=== PATIENT | female | born 1975 | race African-American/Black ===

== ENCOUNTER 2016-09-20 22:21 | Emergency (ER) | payer MEDICARE, MEDICAID ==
[~2016-09-20] VITALS: Ht 162.6 cm; Wt 98.0 kg
[~2016-09-20 22:21] MED LIST: ALBUTEROL SULF8.5 GM INH; AZITHROMYCIN250 MG ORAL; BACTRIM-DS1 EA ORAL; CEPHALEXIN500 MG PO; CHERATUSSIN AC118 ML PO; CIPRO500 MG PO; CLEOCIN HCL150 MG PO; COLACE100 MG ORAL; HIBICLENS118 ML TP; IBUPROFEN600 M1 PO; LOSARTAN POTASS50 MG ORAL; METFORMIN HCL1000 M1 ORAL; METFORMIN HCL500 M4 ORAL; NEXIUM20 MG ORAL; NKM; NORCO 5-325 TA1 EACH ORAL; PHENERGAN/CODE120 ML PO; REGLAN10 MG ORAL; ROBITUSSIN DM5 ML ORAL; SUCRALFATE1 GM/10 ML PO; TAMIFLU75 MG ORAL; TRAMADOL HCL50 MG ORAL; VALIUM10 MG ORAL; VALIUM5 MG ORAL; VICODIN 5-5001 EACH ORAL; ZANTAC150 MG ORAL; ZITHROMAX250 MG ORAL; ZOFRAN ODT4 MG ORAL
[2016-09-20 22:45] VITALS: BP 130/83
[2016-09-20] MEDS ORDERED: Norco 5mg/325mg tab ORAL ONE (23:00)
[2016-09-20] MEDS ORDERED: IBUPROFEN600 MG ORAL (23:48)
[2016-09-20] MEDS ORDERED: HYDROCODON-ACE1 EA15 ORAL (23:48)
--- NOTE | 2016-09-20 23:48 | Emergency Room Report ---
History of Present Illness General Chief Complaint: Lower Extremity Injury Source: Patient Present Illness HPI Is a 41 year female with no significant past medical history. She presents with chief complaint of ankle injury. This occurred 2 days ago she was walking. She stepped off a curb and twisted her ankle. Swelling since then. Throbbing in nature. 7/10 pain. No radiation. Worse with weightbearing. Her second complaint is that she has a sore throat. 2 days ago she was eating a bolus chicken and cannot tell a piece of bone in it. She choked on it and vomited. Since then she complaining of some sore throat. Denies any fever chills denies any nausea vomiting. No other complaint or Allergies: Coded Allergies: No Known Allergies (Unverified , 05/29/13) Patient History Past Medical History: see triage record, old chart reviewed Past Surgical History: other Pertinent Family History: none Social History: Denies: smoking Last Menstrual Period: A WEEK AGO Now: No : 3 Para: 2 Immunizations: other Reviewed Nursing Documentation: PMH: Agreed, PSxH: Agreed Nursing Documentation-PMH Hx Cardiac Problems: No - hernia w/ mesh Hx Hypertension: Yes Hx Pacemaker: No Hx Asthma: No Hx COPD: No Hx Diabetes: Yes Hx Cancer: No Hx Dialysis: No History Of Psychiatric Problem: Yes - ANXIETY Hx Cerebrovascular Accident: No Hx Seizures: No Review of Systems Eye: Denies: blurred vision, eye pain ENT: Denies: ear pain, nose congestion, throat swelling Respiratory: Denies: cough, shortness of breath Cardiovascular: Denies: chest pain, palpitations Gastrointestinal: Denies: abdominal pain, diarrhea, nausea, vomiting Musculoskeletal: Reports: joint pain, Denies: back pain Skin: Denies: rash Neurological: Denies: headache, numbness Endocrine: Denies: increased thirst, increased urine Hematologic/Lymphatic: Denies: easy bruising All Other Systems: negative except mentioned in HPI Physical Exam Vital Signs Date Time Temp Pulse Resp B/P Pulse Ox O2 Delivery O2 Flow Rate FiO2 09/20/16 22:36 98.2 83 18 137/88 97 Room Air vitals normal Sp02 EP Interpretation: reviewed, normal General Appearance: well appearing, no apparent distress, alert Head: normocephalic, atraumatic Eyes: bilateral eye EOMI, bilateral eye PERRL ENT: hearing grossly normal, normal pharynx, other - No trauma to the oropharynx Neck: full range of motion, supple, no meningismus Respiratory: chest non-tender, lungs clear, normal breath sounds Cardiovascular #1: regular rate, rhythm, no murmur Gastrointestinal: normal bowel sounds, non tender, no mass, no organomegaly, no bruit, non-distended Musculoskeletal: back normal, gait/station normal, normal range of motion, swelling - Mild edema and tenderness to the lateral malleolus. Ankle stable. Neurovascularly intact. Psychiatric: mood/affect normal Skin: warm/dry Procedures Splinting Splinting : Consent: Verbal Location: Right ankle Pre-Made Type: aircast Pre-Proc Neuro Vasc Exam: normal Post-Proc Neuro Vasc Exam: normal Patient Tolerated: Well Complications: None Medical Decision Making Diagnostic Impression: Primary Impression: Right ankle sprain Qualified Codes: S93.411A - Sprain of calcaneofibular ligament of right ankle , initial encounter Additional Impression: Sorethroat ER Course Patient with ankle sprain. No fracture or dislocation. We'll discharge home. No foreign body her throat. Last Vital Signs Date Time Temp Pulse Resp B/P Pulse Ox O2 Delivery O2 Flow Rate FiO2 09/20/16 22:36 98.2 83 18 137/88 97 Room Air Status: improved Disposition: HOME, SELF-CARE Condition: Stable Scripts Ibuprofen* (MOTRIN*) 600 Mg Tablet 600 MG ORAL THREE TIMES A DAY, #30 TAB 0 Refills Prov: KORTNEY PETERSON M.D. 09/20/16 Hydrocodone/Acetaminophen 5-325* (HYDROCODONE/ACETAMINOPHEN 5-325*) 1 Each Tablet 1 TAB ORAL Q6H Y for For Pain, #15 TAB 0 Refills Prov: KORTNEY PETERSON M.D. 09/20/16 Patient Instructions: Ankle Sprain Additional Instructions: Followup with your DrLisa in 7 days. Ice pack to the area. Return if worse. KORTNEY PETERSON M.D. Sep 20, 2016 23:48
[2016-09-21] VITALS: BP 129/81
--- NOTE | 2016-09-21 08:55 | Diagnostic Imaging Report ---
Indications: Right ankle trauma, pain Technique: 4 views right ankle. Findings: Comparison: None Anterolateral soft tissue swelling. No fracture, dislocation, joint space widening , additional soft tissue swelling/foreign body/gas, or other acute changes are identified. IMPRESSION: Consider ATFL sprain No other evidence of acute injury
== END 2016-09-21 | disposition home or self-care (01) ==
LOC: EMR 22:45
DX: S93.401A Sprain of unspecified ligament of right ankle, initial encounter (principal); X50.1XXA Overexertion from prolonged static or awkward postures, initial encounter; Y93.01 Activity, walking, marching and hiking; Y92.89 Other specified places as the place of occurrence of the external cause; I10 Essential (primary) hypertension; F41.9 Anxiety disorder, unspecified; J02.9 Acute pharyngitis, unspecified
CPT/HCPCS: 29540; 99283

== ENCOUNTER 2016-11-04 19:21 | Emergency (ER) | payer MEDICARE, MEDICAID ==
[~2016-11-04] VITALS: Ht 162.6 cm; Wt 98.0 kg
[~2016-11-04 19:21] MED LIST changes: +HYDROCODON-ACE1 EA15 ORAL; +IBUPROFEN600 MG ORAL
[2016-11-04 19:35] VITALS: BP 124/76
[2016-11-04] MEDS ORDERED: PSEUDOEPHEDRINE60 MG PO (19:47)
[2016-11-04] MEDS ORDERED: AFRIN NASAL SPR30 ML NASAL (19:47)
[2016-11-04] MEDS ORDERED: CLARITIN-D 241 EACH PO (19:47)
[2016-11-04 19:55] VITALS: BP 124/76
--- NOTE | 2016-11-04 22:30 | Emergency Room Report ---
History of Present Illness General Chief Complaint: Pain Source: Patient Present Illness HPI The patient is a 41-year-old female presenting for right-sided facial pain and ear pain for the past 2 weeks. The patient states that she feels like the right ear is filled with water and she has been having nasal discharge. Pain described as an 8/10 dull ache to the right side of the face and is worse with bending over. Pain does not radiate. She denies other symptoms including fever , chills, cough, sore throat, dizziness, blurred vision Allergies: Coded Allergies: No Known Allergies (Unverified , 05/29/13) Patient History Past Medical History: see triage record Pertinent Family History: none Last Menstrual Period: A MONTH AGO Now: No Reviewed Nursing Documentation: PMH: Agreed, PSxH: Agreed Nursing Documentation-PMH Hx Cardiac Problems: No - hernia w/ mesh Hx Hypertension: Yes Hx Pacemaker: No Hx Asthma: No Hx COPD: No Hx Diabetes: Yes Hx Cancer: No Hx Dialysis: No Hx Cerebrovascular Accident: No Hx Seizures: No Review of Systems All Other Systems: negative except mentioned in HPI Physical Exam Vital Signs Date Time Temp Pulse Resp B/P Pulse Ox O2 Delivery O2 Flow Rate FiO2 11/04/16 19:26 98.2 82 18 124/76 99 Room Air Sp02 EP Interpretation: reviewed, normal General Appearance: no apparent distress, alert, GCS 15, non-toxic Head: normocephalic, atraumatic Eyes: bilateral eye PERRL, bilateral eye normal inspection ENT: normal pharynx, no angioedema, normal voice, uvula midline, nasal congestion, other - R TM serous fluid. Non bulging. No erythema. TTP over R maxillary sinus Neck: full range of motion, supple/symm/no masses Respiratory: chest non-tender, lungs clear, normal breath sounds, speaking full sentences Musculoskeletal: back normal, gait/station normal, normal range of motion, non- tender Neurologic: alert, oriented x3, responsive, motor strength/tone normal, sensory intact, speech normal Psychiatric: judgement/insight normal, memory normal, mood/affect normal, no suicidal/homicidal ideation Skin: normal color, no rash, warm/dry, well hydrated Lymphatic: no adenopathy Medical Decision Making PA Attestation Dr. keane is my supervising physician. Patient management was discussed with my supervising physician Diagnostic Impression: Primary Impression: Maxillary sinusitis Qualified Codes: J01.00 - Acute maxillary sinusitis, unspecified ER Course The patient is a 41-year-old female presenting for right-sided facial pain and ear pain Differential diagnosis include but not limited to otitis externa, otitis media, mastoiditis, sinusitis, pharyngitis PE: vitals within normal limits. There is tenderness to palpation over the right maxillary sinus along with serous fluid behind the right TM and nasal congestion. The patient will be treated for sinusitis with Sudafed, Afrin, and claritin ER precautions given Last Vital Signs Date Time Temp Pulse Resp B/P Pulse Ox O2 Delivery O2 Flow Rate FiO2 11/04/16 19:55 98.2 82 18 124/76 99 Room Air Status: improved Disposition: HOME, SELF-CARE Condition: Improved Scripts Loratadine/Pseudoephedrine (CLARITIN-D 24 HOUR TABLET) 1 Each Tab.er.24h 1 TAB PO DAILY, #15 TAB Prov: KIMANDAVID P.A. 11/04/16 Oxymetazoline HCl (Afrin) 15 Ml Carpenter 2 SPRAY NASAL TWICE A DAY for 5 Days, SPRAY Prov: TERZIANVERONICAY P.A. 11/04/16 Pseudoephedrine Hcl* (SUDAFED*) 60 Mg Tablet 60 MG PO Q6H, #24 TAB Prov: KIMANDAVID P.A. 11/04/16 Referrals: NON PHYSICIAN (PCP) Patient Instructions: Sinusitis, Adult Additional Instructions: I discussed my findings with the patient. All questions and concerns have been answered. Treatment and medication compliance have been addressed. I advised the patient that they need to follow up with PMD in 3-5 days. Return to ED if pain remains or worsens, cough worsens or remains, you notice blood in your sputum, you notice wheezing, you experience a fever, or if needed for any reason. Patient verbalized understanding of discharge instructions. DAVID SUAREZ Nov 04, 2016 22:29
== END 2016-11-04 19:55 | disposition home or self-care (01) ==
LOC: EMR 19:45
DX: J01.00 Acute maxillary sinusitis, unspecified (principal); I10 Essential (primary) hypertension; E11.9 Type 2 diabetes mellitus without complications
CPT/HCPCS: 99284

== ENCOUNTER 2017-10-16 12:49 | Emergency (ER) | payer MEDICARE, MEDICAID ==
[~2017-10-16] VITALS: Ht 162.6 cm; Wt 98.0 kg
[~2017-10-16 12:49] MED LIST changes: +AFRIN NASAL SPR30 ML NASAL; +CLARITIN-D 241 EACH PO; +PSEUDOEPHEDRINE60 MG PO
[2017-10-16] MEDS ORDERED: ZANTAC150 MG ORAL (13:04)
[2017-10-16] MEDS ORDERED: AMOX TR-K CLV1 EAC2 ORAL (13:05)
--- NOTE | 2017-10-16 13:24 | Emergency Room Report ---
History of Present Illness General Chief Complaint: Skin Rash/Abscess Source: Patient Present Illness HPI 42-year-old female patient presents ER complaining of spider bite on her right antecubital fossa for the past 2 days. Patient reports she do not see a spider but that she was bit by one. Patient reports that initially small bump was present and then it popped with some pus drainage. Patient reports bump has slowly gone away but she is concerned that maybe a spider bite. Patient denies fever, chest pain, shortness breath, vomiting, abdominal pain. Patient denies acute symptoms. patient reports that she is currently taking antibiotics for a cough, states she was given antibiotics from an urgent care that she is normally treated. Patient reports history of psoriasis, states that she is going to be seen by her skin specialists at scheduled appointment within the next 2 weeks. Allergies: Coded Allergies: No Known Allergies (Unverified , 05/29/13) Patient History Past Medical History: see triage record Last Menstrual Period: 3 weeks ago Now: No Reviewed Nursing Documentation: PMH: Agreed; PSxH: Agreed Nursing Documentation-PMH Past Medical History: No History, Except For Hx Hypertension: Yes Hx Pacemaker: No Hx Asthma: No Hx COPD: No Hx Diabetes: Yes Hx Cancer: No Hx Gastrointestinal Problems: Yes - GERD Hx Dialysis: No Hx Cerebrovascular Accident: No Hx Seizures: No Review of Systems All Other Systems: negative except mentioned in HPI Physical Exam Vital Signs Date Time Temp Pulse Resp B/P (MAP) Pulse Ox O2 Delivery O2 Flow Rate FiO2 10/16/17 12:57 97.3 72 16 128/72 98 Room Air 97.3 Sp02 EP Interpretation: reviewed, normal General Appearance: well appearing, no apparent distress, alert, GCS 15, non- toxic Head: normocephalic, atraumatic ENT: hearing grossly normal, normal pharynx, no angioedema, normal voice, uvula midline, moist mucus membranes Neck: full range of motion Respiratory: lungs clear, normal breath sounds, no rhonchi, no respiratory distress, no accessory muscle use, no wheezing, speaking full sentences Cardiovascular #1: regular rate, rhythm, no edema Cardiovascular #2: 2+ radial (R), 2+ radial (L) Musculoskeletal: back normal, digits/nails normal, gait/station normal, normal range of motion, non-tender Neurologic: alert, oriented x3, responsive, motor strength/tone normal, sensory intact Psychiatric: mood/affect normal Skin: rash - 1-2 cm area of rash on right antecubital fossa, no active bleeding or drainage, scabbing and dry flaky skin present, no active drainage Medical Decision Making PA Attestation Dr. Crawford is my supervising Physician whom patient management has been discussed with. Diagnostic Impression: Primary Impression: Insect bite ER Course Pt. presents to the ED c/o bug bite. Ddx considered but are not limited to atopic dermatitis, bug bite, urticaria, allergic reaction, psoriasis. Vital signs: are WNL, pt. is afebrile ORDERS: None required at this time, the diagnosis is clinical ER course: Physical exam, no signs of infection, no erythema or edema, patient denies active drainage, itching, bleeding. informed patient reaction of skin may be due to history of psoriasis. Do NOT itch arm. Follow-up with sausage meat trimmer. Patient declined need for Benadryl for hydrocortisone cream, states she has them at home, take for symptomatic relief. DISCHARGE: patient declined Rx for hydrocortisone cream and Benadryl, states she has been at home. -Patient instructed to apply warm compresses to affected area. At this time pt. is stable for d/c to home. Patient resting comfortably, in no acute distress, nontoxic appearing. Care plan and follow up instructions have been discussed with the patient prior to discharge. Patient provided with printed patient care instructions, and any necessary prescriptions. Patient instructed to follow-up with primary care provider in 3 - 5 days. Patient questions asked and answered. Patient reports understanding and agreement to treatment plan. ER precautions given. Patient instructed to return to ER immediately for any new or worsening of symptoms including but not limited to increasing SOB, persistent fever. - Please note that this Emergency Department Report was dictated using [employer] activity manager technology software, occasionally this can lead to erroneous entry secondary to interpretation by the dictation equipment. Last Vital Signs Date Time Temp Pulse Resp B/P (MAP) Pulse Ox O2 Delivery O2 Flow Rate FiO2 10/16/17 12:57 97.3 72 16 128/72 98 Room Air 97.3 Disposition: HOME, SELF-CARE Condition: Stable Patient Instructions: Insect Bite, [id number], Psoriasis, [id number] Additional Instructions: Followup with primary care provider in 3 -5 days. Follow-up with dermatology. Apply warm compresses to area. Take medications as directed. Patient questions asked and answered. ER precautions given, patient instructed to return to ER immediately for any new or worsening of symptoms including but not limited to fever, intractable vomiting, chest pain, shortness of breath, worsening or spreading of rash, red streaking. Finesse Weston October 16, 2017 13:24
[2017-10-16 13:30] VITALS: BP 118/70
== END 2017-10-16 13:30 | disposition home or self-care (01) ==
LOC: EMR 13:17
DX: S50.361A Insect bite (nonvenomous) of right elbow, initial encounter (principal); W57.XXXA Bitten or stung by nonvenomous insect and other nonvenomous arthropods, initial encounter; Y92.9 Unspecified place or not applicable; I10 Essential (primary) hypertension; K21.9 Gastro-esophageal reflux disease without esophagitis
CPT/HCPCS: 99283

== ENCOUNTER 2018-12-28 22:45 | Emergency (ER) | payer MEDICARE, MEDICAID ==
[~2018-12-28] VITALS: Ht 162.6 cm; Wt 89.8 kg
[~2018-12-28 22:45] MED LIST changes: +AMOX TR-K CLV1 EAC2 ORAL
--- NOTE | 2018-12-28 23:17 | NUR ---
ED Nurse Note: pt ambulated to ED from home c/o 12/01 abdominal pain [id number]. Pt reported lifting heavy groceries and feeling a pulling in her abdomen, causing heavy unexpected vaginal bleeding. Pt has hx of umbilical hernia and fibriods. A&Ox4
[2018-12-28 23:19] VITALS: BP 132/82
--- NOTE | 2018-12-28 23:39 | Emergency Room Report ---
History of Present Illness General Chief Complaint: Abdominal Pain Source: Patient, Medical Record Present Illness HPI 43-year-old female with a history of psoriasis. She also a history of prior hernia surgery. She presents with chief complaint abdominal pain. Mostly umbilical and diffusely. Is been ongoing for a month. Worse with certain movement. She got worse a month ago when she was carrying some heavy grocery. No nausea no vomiting. No fever chills. Denies any other complaint. Allergies: Coded Allergies: No Known Allergies (Unverified , 05/29/13) Patient History Past Medical History: see triage record, old chart reviewed Past Surgical History: other Pertinent Family History: none Social History: Denies: smoking Last Menstrual Period: 12/09/18 Now: No Immunizations: other Reviewed Nursing Documentation: PMH: Agreed; PSxH: Agreed Nursing Documentation-PMH Past Medical History: No History, Except For Hx Hypertension: Yes Hx Pacemaker: No Hx Asthma: No Hx COPD: No Hx Diabetes: Yes Hx Cancer: No Hx Gastrointestinal Problems: Yes - GERD Hx Dialysis: No Hx Cerebrovascular Accident: No Hx Seizures: No Review of Systems Eye: Denies: eye pain, blurred vision ENT: Denies: ear pain, nose congestion, throat swelling Respiratory: Denies: cough, shortness of breath Cardiovascular: Denies: chest pain, palpitations Gastrointestinal: Reports: abdominal pain; Denies: diarrhea, nausea, vomiting Musculoskeletal: Denies: back pain, joint pain Skin: Denies: rash Neurological: Denies: headache, numbness Endocrine: Denies: increased thirst, increased urine Hematologic/Lymphatic: Denies: easy bruising All Other Systems: negative except mentioned in HPI Physical Exam Vital Signs Date Time Temp Pulse Resp B/P (MAP) Pulse Ox O2 Delivery O2 Flow Rate FiO2 12/28/18 23:01 98.1 76 16 132/82 (99) 100 Room Air Vitals normal Sp02 EP Interpretation: reviewed, normal General Appearance: well appearing, no apparent distress, alert, obese Head: normocephalic, atraumatic Eyes: bilateral eye PERRL, bilateral eye EOMI ENT: hearing grossly normal, normal pharynx Neck: full range of motion, supple, no meningismus Respiratory: chest non-tender, lungs clear, normal breath sounds Cardiovascular #1: regular rate, rhythm, no murmur Gastrointestinal: normal bowel sounds, no mass, no organomegaly, no bruit, non- distended, tenderness - soft, Diffuse. No mass. Musculoskeletal: back normal, gait/station normal, normal range of motion Neurologic: alert, oriented x3 Psychiatric: mood/affect normal Medical Decision Making Diagnostic Impression: Primary Impression: abdominal pain ER Course Patient presents with abdominal pain is been ongoing for a month. No hernia. No evidence of acute abdomen. No obstruction. Will discharge home. CT/MRI/US Diagnostic Results CT/MRI/US Diagnostic Results : Imaging Test Ordered: CT abdomen and pelvis Impression Neg per radiologist Last Vital Signs Date Time Temp Pulse Resp B/P (MAP) Pulse Ox O2 Delivery O2 Flow Rate FiO2 12/28/18 23:19 98.1 76 16 132/82 100 Room Air Status: improved Disposition: HOME, SELF-CARE Condition: Stable Patient Instructions: Abdominal Pain, Adult Additional Instructions: Follow-up with your doctor in 7 days. Return if worse. Memo March MD Dec 28, 2018 23:38
[2018-12-28 23:59] LABS: APPEARANCE,URINE CLEAR; BILIRUBIN, URINE NEGATIVE (NEGATIVE); COLOR,URINE PALE YELLOW; GLUCOSE, URINE (UA) NEGATIVE (NEGATIVE); KETONES,URINE NEGATIVE (NEGATIVE); LEUKOCYTE ESTERASE ,URINE NEGATIVE (NEGATIVE); NITRITE,URINE NEGATIVE (NEGATIVE); PH,URINE 5 (4.5-8.0); PROTEIN,URINE NEGATIVE (NEGATIVE); UROBILINOGEN,URINE NORMAL MG/DL (0.0-1.0)
--- NOTE | 2018-12-29 01:15 | NUR ---
ED Nurse Note: Pt resting in bed talking on the phone, no signs of distress, will continue to monitor
--- NOTE | 2018-12-29 01:56 | Diagnostic Imaging Report ---
CT ABDOMEN AND PELVIS WITHOUT CONTRAST Indication: Abdominal pain Technique: Continuous helical transaxial imaging of the abdomen and pelvis was obtained from the lung bases to the pubic symphysis. Coronal 2-D reformats were also obtained. Study obtained in a Siemens sensation [address] Automatic Exposure Control was utilized. Total Dose length Product (DLP): 966.[address] Dose Index Volume (CTDIvol): 18.16 mGy Comparison: CT abdomen pelvis dated 04/16/2015 Findings: Lower chest:: Mild right middle lobe subsegmental atelectasis. Hepatobiliary:: Status post cholecystectomy. Liver is unremarkable. Genitourinary:: No hydronephrosis or nephrolithiasis. Myomatous uterus with dense calcification. Adrenals:: Unremarkable. Pancreas:: Unremarkable. Gastrointestinal:: No evidence of obstruction. Appendix is normal. Spleen: : Unremarkable. Peritoneum:: No free air or ascites. Bones and soft tissues:: There are multilevel discogenic degenerative changes of the visualized spine. IMPRESSION: No acute intra-abdominal or intrapelvic processes. These findings are concordant with the [facility] preliminary report. The CT scanner at [facility] is accredited by the [employer] and the scans are performed using protocols designed to limit radiation exposure to as low as reasonably achievable to attain images of sufficient resolution adequate for diagnostic evaluation
[2018-12-29 02:05] VITALS: BP 132/82
--- NOTE | 2018-12-29 02:05 | NUR ---
ER DISCHARGE NOTE: Patient is cleared to be discharged per ERMD, pt is aox4, on room air, with stable vital signs. pt was given dc and prescription instructions, pt was able to verbalize understanding, pt id band removed. pt is able to ambulate with steady gait. pt took all belongings.
== END 2018-12-29 02:05 | disposition home or self-care (01) ==
LOC: EMR 23:15
DX: R10.9 Unspecified abdominal pain (principal); I10 Essential (primary) hypertension; K21.9 Gastro-esophageal reflux disease without esophagitis
CPT/HCPCS: 74176; 80307; 81003; 81025; 99284